=== PATIENT | female | born 1940 | race Two or more races ===

== ENCOUNTER 2016-08-13 23:59 | Emergency (ER) | payer MEDICARE, BC ==
[2016-08-14] MEDS ORDERED: Ondansetron INJ* 2 MG/ML VIAL IV ONE (00:19)
[2016-08-14] MEDS ORDERED: NS 0.9% 1000 ML* 1,000 ML IV ONE (00:19)
--- NOTE | 2016-08-14 00:35 | ED ---
Jose Armando Novoa Benjamin, scribed for Bryce De La Cruz MD on 08/14/16 at 0023 . Abdominal Pain/Female - HPI Summary HPI Summary: 75yo female c/o N/V after having salmon for dinner around [id number]. Pt also reports mild intermittent abdominal pain. Denies diarrhea. - History of Current Complaint Chief Complaint: EDNauseaVomitDiarrh Stated Complaint: VOMITING/WEAKNESS Time Seen by Provider: 08/14/16 00:09 Hx Obtained From: Patient, Family/Concrete Saw Operator - ?: No Onset/Duration: Sudden Onset, Lasting Hours, Still Present Timing: Intermittent Episode Lasting Severity Initially: Mild Severity Currently: None Pain Intensity: 0 Pain Scale Used: 0-10 Numeric Location: Diffuse Radiates: No Aggravating Factor(s): Food Alleviating Factor(s): Nothing Associated Signs and Symptoms: Positive: Nausea, Vomiting. Negative: Diarrhea Allergies/Adverse Reactions: Allergies Allergy/AdvReac Type Severity Reaction Status Date / Time Morphine Allergy Shakes Verified 08/14/16 00:55 Penicillins Allergy Unknown Verified 08/14/16 00:55 Reaction Details PMH/Surg Hx/FS Hx/Imm Hx Endocrine/Hematology History: Reports: Hx Diabetes - NO MEDS WELL CONTROLLED Cardiovascular History: Reports: Hx Hypertension Denies: Hx Pacemaker/ICD Respiratory History: Denies: Hx Asthma History: Denies: Hx Renal Disease Sensory History: Denies: Hx Hearing Aid Psychiatric History: Denies: Hx Panic Disorder - Surgical History Surgery Procedure, Year, and Place: 2002 LOW BACK LAMINECTOMY, TUBAL LIGATION, CATARACT BILAT, TEAR DUCT SURGERY, HEART STENT 2005-[place] UP TO 3T-PT WILL BRING IN HER CARD TO COPY, BILAT CTR. LITTLE TOE RIGHT [id number] AGE 16 Infectious Disease History: No Infectious Disease History: Denies: Traveled Outside the [place] in Last 30 Days - Family History Known Family History: Negative: Cardiac Disease, Hypertension - Social History Lives: With Family Hx Substance Use: No Hx Tobacco Use: No Review of Systems Constitutional: Negative Eyes: Negative ENT: Negative Cardiovascular: Negative Respiratory: Negative Positive: Abdominal Pain, Vomiting, Nausea. Negative: Diarrhea Genitourinary: Negative Musculoskeletal: Negative Skin: Negative Neurological: Negative Psychological: Normal All Other Systems Reviewed And Are Negative: Yes Physical Exam Triage Information Reviewed: Yes Vital Signs On Initial Exam: Initial Vitals Temp Pulse Resp BP Pulse Ox 97.6 F 65 18 143/63 97 08/14/16 00:00 08/14/16 00:00 08/14/16 00:00 08/14/16 00:00 08/14/16 00:00 Vital Signs Reviewed: Yes Appearance: Positive: No Pain Distress, Ill-Appearing Skin: Positive: Warm Head/Face: Positive: Normal Head/Face Inspection Eyes: Positive: PIERRE ENT: Positive: Pharynx normal Neck: Positive: Supple Respiratory/Lung Sounds: Positive: Clear to Auscultation, Breath Sounds Present Cardiovascular: Positive: Normal Abdomen Description: Positive: Nontender, No Organomegaly, Soft Bowel Sounds: Positive: Present Musculoskeletal: Positive: Strength/ROM Intact Neurological: Positive: Sensory/Motor Intact Diagnostics - Vital Signs Vital Signs Temp Pulse Resp BP Pulse Ox 08/14/16 00:00 97.6 F 65 18 143/63 97 - Laboratory Result Diagrams: 08/14/16 00:40 08/14/16 00:40 Lab Statement: Any lab studies that have been ordered have been reviewed, and results considered in the medical decision making process. Re-Evaluation - Re-Evaluation First Eval Change: Improved Abdominal Pain Fem Course/Dx - Diagnoses Provider Diagnoses: Gastroenteritis Discharge - Discharge Plan Condition: Stable Disposition: HOME Patient Education Materials: Diet for Ulcers and Gastritis (ED), Gastroenteritis (ED) Referrals: Kate Magallanes MD [Primary Care Provider] - The documentation as recorded by the Jose Armando gay Benjamin accurately reflects the service I personally performed and the decisions made by me, Bryce De La Cruz MD.
[2016-08-14 00:54] LABS: Hematocrit 47 % (35-47); Hemoglobin 15.5 g/dl (12.0-16.0); Mean Corpuscular HGB Conc 33 g/dl (31-36); Mean Corpuscular Hemoglobin 31 pg (27-31); Mean Corpuscular Volume 92 fL (80-97); Mean Platelet Volume 8 um3 (7.4-10.4); Red Blood Count 5.07 10^6/ul (4.0-5.4); Red Cell Distribution Width 14 % (10.5-15); White Blood Count 7.9 10^3/ul (3.5-10.8)
[2016-08-14 01:07] LABS: Albumin 4.5 g/dL (3.2-5.2); BUN/Creatinine Ratio 24.4 (8-20); C Reactive Protein 2.77 mg/L (< 5.00); Calcium 9.7 mg/dL (8.6-10.3); EGFR African American 82.7 (>60); EGFR Non-African American 64.3 (>60); Globulin 3.1 g/dL (2-4); Potassium 4.2 mmol/L (3.5-5.0); Total Bilirubin 0.4 mg/dL (0.2-1.0); Total Protein 7.6 g/dL (6.4-8.9)
[2016-08-14] MEDS ORDERED: Ondansetron ODT TAB* 4 MG PO ONE (01:46)
[2016-08-14 01:55] VITALS: BP 119/62
[2016-08-14 02:10] LABS: Urine Bilirubin Negative (Negative); Urine Glucose Negative (Negative); Urine Nitrite Negative (Negative)
== END 2016-08-14 02:13 | disposition home or self-care (01) ==
LOC: ED 23:59
DX: K52.9 Noninfective gastroenteritis and colitis, unspecified (principal); R11.2 Nausea with vomiting, unspecified; R10.9 Unspecified abdominal pain
CPT/HCPCS: 36415; 80053; 81003; 83690; 85025; 86140; 96374; 99283; A9270-GY; J2405

== ENCOUNTER 2020-10-11 19:43 | Observation (INO) ==
[2020-10-11 23:39] LABS: ABS Lymphocytes 1.2 10^3/ul (1.0-4.8); ABS Monocytes 0.6 10^3/ul (0-0.8); ABS Neutrophils 5.2 10^3/ul (1.5-7.7); Eosinophil % 0.4 %; Hematocrit 40 % (35-47); Hemoglobin 13.6 g/dL (12.0-16.0); Lymphocyte % 17.4 %; Mean Corpuscular HGB Conc 34 g/dL (31-36); Mean Corpuscular Hemoglobin 32 pg (27-31); Mean Corpuscular Volume 92 fL (80-97); Mean Platelet Volume 8.3 fL (7.4-10.4); Platelet Count 145 10^3/uL (150-450); Red Blood Count 4.33 10^6 /uL (3.70-4.87); Red Cell Distribution Width 14 % (10-15)
[2020-10-11 23:55] LABS: Albumin 4.3 g/dL (3.2-5.2); Albumin/Globulin Ratio 1.5 (1-3); BUN/Creatinine Ratio 23.3 (8-20); C Reactive Protein 5.49 mg/L (<8.01); Calcium 9.4 mg/dL (8.6-10.3); EGFR African American 116.7 (>60); EGFR Non-African American 96.4 (>60); Globulin 2.8 g/dL (2-4); Potassium 3.9 mmol/L (3.5-5.0); Total Bilirubin 0.5 mg/dL (0.2-1.0); Total Protein 7.1 g/dL (6.4-8.9)
[2020-10-12 01:28] LABS: Urine Appearance Clear; Urine Bilirubin Negative (Negative); Urine Blood Negative (Negative); Urine Color Yellow; Urine Glucose Negative (Negative); Urine Ketones Negative (Negative); Urine Nitrite Negative (Negative); Urine Protein Negative (Negative); Urine Specific Gravity 1.019 (1.002-1.030); Urine Urobilinogen Negative (Negative)
[2020-10-12] MEDS ORDERED: fentaNYL 100 mcg/2 ml 50 MCG/ML VIAL IV SLOW PU ONE ×2 (01:56→02:34)
[2020-10-12] MEDS ORDERED: Ondansetron 4 mg VIAL 2 MG/ML 2 ml VIAL IV PRN (01:59)
[2020-10-12] MEDS ORDERED: HYDROmorphone 1 MG/1 ML SYRINGE IV PRN (02:05)
[2020-10-12] MEDS ORDERED: fentaNYL 100 mcg/2 ml 50 MCG/ML VIAL ONE (02:36)
[2020-10-12] MEDS ORDERED: Albuterol HFA INHALER 8 gm MDI INH PRN (02:59)
[2020-10-12] MEDS ORDERED: Senna TAB 8.6 mg TAB PO PRN (03:19)
[2020-10-12] MEDS ORDERED: NS 0.9% 1000 ml BAG 1,000 ML IV SCH (03:30)
[2020-10-12 05:29] LABS: BUN/Creatinine Ratio 19.3 (8-20); EGFR African American 123.8 (>60); EGFR Non-African American 102.3 (>60); Potassium 3.7 mmol/L (3.5-5.0)
[2020-10-12] MEDS: Heparin 5000 UNITS/ML 1 mL VIAL SUBCUT SCH ×3 (06:28→22:24)
[2020-10-12] MEDS: SPIRIVA Respimat (tiotropium) 2.5 mcg/inh Inhaler INH SCH (07:52)
[2020-10-12] MEDS: Simvastatin 20 mg TAB (NF) PO SCH (08:52)
[2020-10-12 12:04] LABS: Influenza A Molecular Negative (Negative); Influenza B Molecular Negative (Negative)
[2020-10-12] MEDS: Vitamin THERAPEUTIC TAB PO SCH (20:25)
[2020-10-12] MEDS: Magnesium Chloride EC 64 mgTAB PO SCH (20:26)
[2020-10-12] MEDS: Aspirin EC 81 mg TAB.EC (enteric coated) PO SCH (20:26)
[2020-10-13] MEDS: Heparin 5000 UNITS/ML 1 mL VIAL SUBCUT SCH ×3 (05:07→21:00)
[2020-10-13] MEDS: SPIRIVA Respimat (tiotropium) 2.5 mcg/inh Inhaler INH SCH (09:00)
[2020-10-13] MEDS: Simvastatin 20 mg TAB (NF) PO SCH (09:46)
[2020-10-13] MEDS: Magnesium Chloride EC 64 mgTAB PO SCH (20:59)
[2020-10-13] MEDS: Aspirin EC 81 mg TAB.EC (enteric coated) PO SCH (20:59)
[2020-10-13] MEDS: Vitamin THERAPEUTIC TAB PO SCH (21:00)
[2020-10-14] MEDS: Heparin 5000 UNITS/ML 1 mL VIAL SUBCUT SCH (05:27)
[2020-10-14] MEDS: SPIRIVA Respimat (tiotropium) 2.5 mcg/inh Inhaler INH SCH (08:00)
[2020-10-14] MEDS: Simvastatin 20 mg TAB (NF) PO SCH (08:47)
[2020-10-14 11:19] VITALS: BP 144/62
== END 2020-10-14 16:01 | disposition home or self-care (01) ==
LOC: ED 19:43 → SSU 19:43
PROVIDERS: ADMIT Student in an Organized Health Care Education/Training Program; ATTEND Internal Medicine

== ENCOUNTER 2024-02-20 16:19 | Observation (INO) ==
[2024-02-20 16:54] LABS: Hematocrit 37.6 % (35-45); Mean Corpuscular Hemoglobin 31.4 pg (27-33); Mean Corpuscular Hgb Conc 34.5 g/dL (31-36); Red Blood Count 4.13 10^6/uL (3.63-4.92); Red Cell Distribution Width 13.9 % (12-17); White Blood Count 3.4 10^3/uL (3.8-11.8)
[2024-02-20 16:57] LABS: INR 1.07 (0.83-1.13)
[2024-02-20 17:15] LABS: ALT 25 U/L (7-52); AST 39 U/L (13-39); Albumin 4.1 g/dL (3.2-5.2); Albumin/Globulin Ratio 1.5 (1-3); Alkaline Phosphatase 48 U/L (35-149); Anion Gap 7 mmol/L (2-16); Blood Urea Nitrogen 15 mg/dL (6-24); CO2 Carbon Dioxide 31 mmol/L (22-32); Calcium 9.2 mg/dL (8.6-10.3); Chloride 99 mmol/L (101-111); Creatinine, Serum 0.69 mg/dL (0.51-0.95); Globulin 2.7 g/dL (2-4); Glucose 116 mg/dL (70-100); High Sens Troponin Baseline 5 pg/mL (<15); Potassium 4.6 mmol/L (3.5-5.0); Sodium 137 mmol/L (135-145); Total Bilirubin 0.4 mg/dL (0.2-1.0); Total Protein 6.8 g/dL (6.4-8.9); eGFR CKD-EPI 86.1 (>60)
[2024-02-20 17:23] LABS: ABS Lymphocytes 2.2 10^3/uL (1.0-4.8); ABS Monocytes 0.5 10^3/uL (0.0-0.9); ABS Neutrophils 0.7 10^3/uL (1.5-7.6); ABS Nucleated RBC 0.01 10^3/ul; Eosinophil % 1.1 %; Large Platelets Present; Lymphocyte % 63.9 %; Mean Platelet Volume 8.5 fL (7.5-11.2); Nucleated Red Blood Cells % 0.2 %/100WBC (0.0-0.8); Platelet Count 40 10^3/uL (150-450); RBC Morphology Normal (Normal); Smudge Cells Present
[2024-02-20] MEDS: Iohexol 350 (CONTRAST) 500 ML MDV IV ONE (18:11)
[2024-02-20 18:13] LABS: Lipase 52 U/L (11.0-82.0)
[2024-02-20 18:28] LABS: High Sensitivity Troponin 1 Hr 6 pg/mL (<15)
[2024-02-20] MEDS: DOXYcycline 100 MG in NS 0.9% 250 ml 250 ML IVPB ONE (20:41)
[2024-02-20] MEDS: DOXYcycline 100 MG in NS 0.9% 250 ml 250 ML IVPB SCH (22:13)
[2024-02-21] MEDS: Enoxaparin 40 MG/0.4 ML SYR SUBCUT SCH (00:10)
[2024-02-21 03:13] LABS: TSH Ultra Thyroid Stim Horm 5.96 mcIU/mL (0.34-5.60)
[2024-02-21 06:08] LABS: Folate > 20.00 ng/mL (5.90-24.80)
[2024-02-21 06:09] LABS: Vitamin B12 507 pg/mL (180-914)
[2024-02-21 07:24] LABS: Hematocrit 36.5 % (35-45); Hemoglobin 12.4 g/dL (11.5-14.3); Mean Corpuscular Hemoglobin 30.9 pg (27-33); Mean Corpuscular Volume 90.8 fL (80-97); Mean Platelet Volume 9.9 fL (7.5-11.2); Platelet Count 45 10^3/uL (150-450); Red Blood Count 4.02 10^6/uL (3.63-4.92); Red Cell Distribution Width 13.9 % (12-17); White Blood Count 3.9 10^3/uL (3.8-11.8)
[2024-02-21] MEDS: SPIRIVA Respimat (tiotropium) 2.5 mcg/inh Inhaler INH SCH (07:36)
[2024-02-21] MEDS: Cholestyramine Resin 4 GM POWDER PO SCH (08:08)
[2024-02-21] MEDS: DOXYcycline 100 MG in NS 0.9% 250 ml 250 ML IVPB SCH (08:10)
[2024-02-21] MEDS: Aspirin EC 81 mg TAB.EC (enteric coated) PO SCH (08:11)
[2024-02-21] MEDS: Lactated Ringers 1000 ml BAG 1,000 ML IV SCH (11:38)
[2024-02-21 13:45] LABS: RBC Parasite Smear No Parasites Seen (No Parasite)
[2024-02-22 06:46] LABS: Hematocrit 36.8 % (35-45); Hemoglobin 12.7 g/dL (11.5-14.3); Mean Corpuscular Hemoglobin 31.2 pg (27-33); Mean Corpuscular Hgb Conc 34.5 g/dL (31-36); Mean Corpuscular Volume 90.4 fL (80-97); Red Blood Count 4.07 10^6/uL (3.63-4.92); Red Cell Distribution Width 13.9 % (12-17); White Blood Count 4.1 10^3/uL (3.8-11.8)
[2024-02-22 06:56] LABS: Calcium 8.9 mg/dL (8.6-10.3); Creatinine, Serum 0.61 mg/dL (0.51-0.95); Potassium 4.1 mmol/L (3.5-5.0); eGFR CKD-EPI 88.7 (>60)
[2024-02-22 08:15] LABS: ABS Eosinophils 0.1 10^3/uL (0.0-0.5); ABS Lymphocytes 2.9 10^3/uL (1.0-4.8); ABS Monocytes 0.3 10^3/uL (0.0-0.9); ABS Neutrophils 0.8 10^3/uL (1.5-7.6); ABS Nucleated RBC 0.02 10^3/ul; Eosinophil % 1.7 %; Nucleated Red Blood Cells % 0.4 %/100WBC (0.0-0.8); Platelet Count 52 10^3/uL (150-450)
[2024-02-22 09:26] LABS: Magnesium 1.8 mg/dL (1.9-2.7); Phosphorus 3.6 mg/dL (2.5-5.0)
[2024-02-22 16:50] LABS: Copper, S 100 mcg/dL (77-206)
[2024-02-22 17:32] VITALS: BP 145/74
== END 2024-02-22 18:30 | disposition home or self-care (01) ==
LOC: ED 16:19 → EDHOLD 16:19 → MERGE 21:21 → SUATTDRO 21:21 → MED 02-21 00:48
PROVIDERS: ADMIT Internal Medicine; ATTEND Internal Medicine